=== PATIENT | male | born 1985 | race Caucasian/White ===

== ENCOUNTER → 2017-12-20 09:22 | Outpatient (CLI) | payer OTHER, SELFPAY ==
[2017-12-20 11:36] LABS: HIV - WCH Non-Reactive (Nonreactive)
[2017-12-21 11:04] LABS: HEPATITIS B SURFACE AG Negative (Negative); Hep C Antibodies <0.1 s/co ratio (0.0-0.9)
[2017-12-22 05:19] LABS: Rapid Plasmin Reagin (RPR) NONREACTIVE (NONREACTIVE)
== END ==
PROVIDERS: Family Provider Nurse Practitioner Family; PCP Nurse Practitioner Family; Visit Provider Obstetrics & Gynecology Reproductive Endocrinology
DX: Z11.9 Encounter for screening for infectious and parasitic diseases, unspecified (principal); Z11.4 Encounter for screening for human immunodeficiency virus [HIV]
CPT/HCPCS: 86592; 86703; 86803; 87340

== ENCOUNTER → 2021-01-15 08:47 | Outpatient (CLI) | payer OTHER, SELFPAY ==
[2021-01-15 10:51] LABS: HIV - WCH Non-Reactive (Nonreactive); Hepatitis B Surface Antigen Non-Reactive (Nonreactive); Hepatitis C Antibody Non-Reactive (Nonreactive); Syphilis Antibodies Non-reactive
== END ==
PROVIDERS: PCP Nurse Practitioner Family; Referring Provider Obstetrics & Gynecology Reproductive Endocrinology; Visit Provider Obstetrics & Gynecology Reproductive Endocrinology
DX: Z11.59 Encounter for screening for other viral diseases (principal); Z11.8 Encounter for screening for other infectious and parasitic diseases
CPT/HCPCS: 36415; 86703; 86780; 86803; 87340